=== PATIENT | male | born 1980 | race Caucasian/White ===

== ENCOUNTER 2023-12-26 11:36 | Emergency (ER) | payer SELFPAY ==
[~2023-12-26] VITALS: Ht 185.4 cm; Wt 105.9 kg
[2023-12-26 11:39] VITALS: TEMP 97.9
[2023-12-26] MEDS ORDERED: MEDROL 4MG DOSPA4 MG PO (14:26)
[2023-12-26 14:39] VITALS: BP 151/94; PULSE 81
== END 2023-12-26 14:55 | disposition home or self-care (01) ==
LOC: COL.ER 11:36
DX: M54.12 Radiculopathy, cervical region (principal); F17.200 Nicotine dependence, unspecified, uncomplicated